=== PATIENT | male | born 1995 | race Caucasian/White ===

== ENCOUNTER 2021-12-05 21:26 | Emergency (ER) | payer OTHER ==
[~2021-12-05] VITALS: Ht 182.9 cm; Wt 76.7 kg
[2021-12-05 21:27] VITALS: BP 155/88
== END 2021-12-05 23:08 | disposition home or self-care (01) ==
LOC: M ED 21:26
DX: S43.52XA Sprain of left acromioclavicular joint, initial encounter (principal); F17.200 Nicotine dependence, unspecified, uncomplicated; F10.10 Alcohol abuse, uncomplicated; V00.311A Fall from snowboard, initial encounter; Y92.9 Unspecified place or not applicable; Y93.23 Activity, snow (alpine) (downhill) skiing, snowboarding, sledding, tobogganing and snow tubing; Y99.9 Unspecified external cause status

== ENCOUNTER 2022-06-24 13:28 | Emergency (ER) | payer OTHER ==
[~2022-06-24] VITALS: Ht 182.9 cm; Wt 84.1 kg
[2022-06-24] MEDS ORDERED: fentaNYL 100 MCG/2 ML INJECTION IV ONE (15:10)
[2022-06-24 15:36] LABS: RSV AMPLIFICATION NEGATIVE (NEGATIVE)
[2022-06-24 16:21] VITALS: BP 120/72
== END 2022-06-24 16:24 | disposition short-term general hospital (02) ==
LOC: M ED 13:28
DX: S52.221A Displaced transverse fracture of shaft of right ulna, initial encounter for closed fracture (principal); S52.321A Displaced transverse fracture of shaft of right radius, initial encounter for closed fracture; S80.211A Abrasion, right knee, initial encounter; V29.9XXA Motorcycle rider (driver) (passenger) injured in unspecified traffic accident, initial encounter; Y92.481 Parking lot as the place of occurrence of the external cause
CPT/HCPCS: 73060; 73090; 87631; 96374; 99284; J3010